=== PATIENT | female | born 1995 | race Caucasian/White ===

== ENCOUNTER 2018-11-22 00:42 | Observation (INO) ==
--- NOTE | 2018-11-22 01:48 | HP ---
Chief Complaint - Chief Complaint Date of Service: 11/22/18 Time of Service: 01:37 Chief Complaint: fell on buttocks History of Present Illness: 23 yo at 33 1/7 wks presents to L&D s/p fall on ice at around 2245, landing on buttocks. She admits to mild low back pain. She denies hitting head or abdomen, LOF, vaginal bleeding, contractions, abdominal pain, N/V, lightheadedness, or decreased movement. This complicated by bipolar d/o. Rh positive Rubella immune GBS not done Medical History (Last Reviewed 11/22/18 @ 01:41 by Mark Ramos DO) Bipolar affect, depressed Fatty liver calcium deposit removal Onset Date: 2002 right thigh Surgical History: Surgical History (Last Reviewed 11/22/18 @ 01:41 by Mark Ramos DO) H/O adenoidectomy History of appendectomy Onset Date: 2006 History of myringotomy History of tonsillectomy Hx laparoscopic cholecystectomy Onset Date: 2014 Family History: Family History (Last Reviewed 11/22/18 @ 01:41 by Mark Ramos DO) Mother Personality disorder Father Schizophrenia Hypertension Family/Other Cancer breast cancer Social History: Preferred Language Vincentian Smoking Status Former smoker (Last Updated 11/17/18 @ 13:59 by Magy Garcia [facility]) No Social History Section defined Review Of Systems (GEN) - Review of Systems Generalized/Overall Review: Present: No Symptoms Reported EENTM: Present: No Symptoms Reported Respiratory: Present: No Symptoms Reported Cardiac: Present: No Symptoms Reported Abdominal: Present: No Symptoms Reported Genitourinary: Present: No Symptoms Reported Musculoskeletal: Present: Back Pain Neurological: Present: No Symptoms Reported Skin: Present: No Symptoms Reported Endocrine: Present: No Symptoms Reported Allergies/Adverse Reactions: Allergies Allergy/AdvReac Type Severity Reaction Status Date / Time No Known Allergies Allergy Verified 11/17/18 13:41 Home Medications: HOME MEDICATIONS Acetaminophen [Tylenol] 500 mg PO Q6H PRN 10/15/18 [Last Taken Unknown] Pediatric Multivitamin No.101 [Gummy] 2 ea PO 10/15/18 [Last Taken 10/15/18 08:00] Exam - Exam Vital Signs: Vital Signs - Last Taken Temp 36.4 C 11/22/18 01:32 Pulse 88 11/22/18 01:32 Resp 16 11/22/18 01:32 BP 95/57 11/22/18 01:32 Constitutional: Present: Alert, Oriented x3, Cooperative, No distress ENT Exam: Present: hearing grossly normal Breasts: Present: Exam deferred Respiratory: Present: lungs clear, no respiratory distress Cardiovascular/Chest: Present: regular rate, rhythm, no edema Abdomen: Present: soft, nontender, no rebound tenderness, other - gravid /Rectal: Present: Exam deferred Extremity: Present: no pedal edema, no calf tenderness Skin Exam: Present: normal color, warm/dry, no cyanosis Neurologic: Present: alert, normal mood/affect, oriented x 3 Appearance: Present: appropriate appearance, appropriate insight Eye contact: Present: cooperative, good eye contact, normal speech Thoughts: Present: normal thought pattern Diagnostic Studies: FHT 120 bpm, no contractions NST reactive. Assessment/Plan - Assessment/Plan (1) Fall from slipping on ice Assessment: Admit to OB clinic status, continuous monitoring and observation till 4 hours after fall, longer if any concerning s/s. D/c home with abruption preca utions - no heavy lifting/strenous activity for 24 hours. F/u in office with OB as scheduled. Problem: Acute (2) At high risk for maternal or injury Problem: Acute
[2018-11-22] MEDS ORDERED: DEXTROSE 5%-LACTATED RINGERS 1,000 ML IV PRN ×2 (05:31→07:06)
--- NOTE | 2018-11-22 05:42 | PN ---
Subjective - Date and Time Seen Date: 11/22/18 Time: 05:32 Subjective Narrative: Patient began complaining of lower uterine cramping around 0330 this am which hsa become more intense but less frequent over the past 2 hours. She denies lightheadedness, vaginal bleeding, decreased movement, or low back pain. Objective - Review of Systems Generalized/Overall Review: Reports: No Symptoms Reported EENTM: Reports: No Symptoms Reported Respiratory: Reports: No Symptoms Reported Cardiac: Reports: No Symptoms Reported Abdominal: Reports: Other - lower abdominal cramping Genitourinary Symptoms: Reports: No Symptoms Reported Musculoskeletal Complaints: Reports: No Symptoms Reported Neurological: Reports: No Symptoms Reported Skin: Reports: No Symptoms Reported Endocrine: Reports: No Symptoms Reported - Vitals Vitals: Last Vital Signs Temp 36.4 C 11/22/18 01:32 Pulse 88 11/22/18 01:32 Resp 16 11/22/18 01:32 BP 95/57 11/22/18 01:32 - EKG/Xray Findings EKG: other - NST reactive, no decelerations, contractions q2-4 min (lasting approx 30-45sec) - Exam Constitutional: Present: Alert, Oriented x3, Cooperative Respiratory: Present: no respiratory distress Cardiovascular/Chest: Present: regular rate, rhythm Abdomen: Present: soft, no rebound tenderness, tender - right side of uterus where baby is laying. Absent: guarding /Rectal: Present: Exam deferred Extremity: Present: no pedal edema, no calf tenderness Skin Exam: Present: normal color, warm/dry, no cyanosis Neurologic: Present: alert, normal mood/affect, oriented x 3 Assessment/Plan - Problems/Diagnosis (1) Fall from slipping on ice Problem: Acute (2) At high risk for maternal or injury Problem: Acute (3) Threatened labor Problem: Acute Qualifiers: Trimester: third trimester Qualified Code(s): O47.03 - False labor before 37 completed weeks of gestation, third trimester Narrative: Will give IV fluid bolus. If contractions persist and increase intensity will get GBS culture and check cervix. Monitor closely for s/s of abruption.
[2018-11-22] MEDS ORDERED: BETAMETHASONE ACETATE,SOD PHOS 6 MG/ML VIAL IM ONE (10:26)
[2018-11-23] MEDS ORDERED: ACETAMINOPHEN 500 MG TABLET PO PRN (09:38)
[2018-11-23 09:52] VITALS: BP 112/56
--- NOTE | 2018-11-23 09:57 | PN ---
Subjective - Date and Time Seen Date: 11/23/18 Time: 09:39 Subjective Narrative: Patient denies painful contractions, vaginal bleeding, decreased movement, nausea or vomiting, or lightheaded/dizziness. Complains of mild left hip pain from sleeping on bed-right hip that she fell on is not painful. Objective - Review of Systems Generalized/Overall Review: Reports: No Symptoms Reported EENTM: Reports: No Symptoms Reported Respiratory: Reports: No Symptoms Reported Cardiac: Reports: No Symptoms Reported Abdominal: Reports: No Symptoms Reported, Other - painful contractions resolved yesterday. Genitourinary Symptoms: Reports: No Symptoms Reported Musculoskeletal Complaints: Reports: Other - left hip pain 2-12/28 Neurological: Reports: No Symptoms Reported Skin: Reports: No Symptoms Reported Endocrine: Reports: No Symptoms Reported - Vitals Vitals: Last Vital Signs Temp 36.4 C 11/22/18 01:32 Pulse 88 11/22/18 01:32 Resp 16 11/22/18 01:32 BP 95/57 11/22/18 01:32 - EKG/Xray Findings EKG: other - NST reactive. Only one mild variable deceleration throughout ent nicki period of observation. Good accelerations. Contractions resolved yesterday on toco. - Exam Constitutional: Present: Alert, Oriented x3, Cooperative, No distress ENT Exam: Present: hearing grossly normal Breasts: Present: Exam deferred Respiratory: Present: lungs clear, no respiratory distress Cardiovascular/Chest: Present: regular rate, rhythm Abdomen: Present: soft, nontender, no rebound tenderness, other - gravid. Absent: tender /Rectal: Present: Other - cervix - cl/th/-2 yesterday after contractions stopped. Extremity: Present: non-tender, no pedal edema, no calf tenderness Skin Exam: Present: normal color, warm/dry, no cyanosis Neurologic: Present: alert, normal mood/affect, oriented x 3. Absent: dizzy/light-headedness Appearance: Present: appropriate appearance, appropriate insight Eye contact: Present: cooperative, good eye contact, normal speech Thoughts: Present: normal thought pattern Assessment/Plan Plan Narrative: Discharge home today with abruption/PTL precautions. Avoid heavy lift ing/strenuous activity, sexual activity/nipple stimulation for 1 wk. Low back/pelvic floor stretching/exercises given. - Problems/Diagnosis (1) Fall from slipping on ice Problem: Acute Qualifiers: Encounter type: initial encounter Qualified Code(s): W00.9XXA - Unspecified fall due to ice and snow, initial encounter (2) At high risk for maternal or injury Problem: Acute (3) Threatened labor Problem: Acute Qualifiers: Trimester: third trimester Qualified Code(s): O47.03 - False labor before 37 completed weeks of gestation, third trimester
--- NOTE | 2018-11-23 09:58 | PN ---
Subjective - Date and Time Seen Date: 11/23/18 Time: 09:57 Subjective Narrative: This note started to import latest vitals since computer was not importing correct vitals. Objective - Vitals Vitals: Last Vital Signs Temp 36.6 C 11/23/18 07:00 Pulse 68 11/23/18 07:00 Resp 20 11/23/18 07:00 BP 112/56 11/23/18 07:00 Pulse Ox 97 11/23/18 07:00 Assessment/Plan - Problems/Diagnosis (1) Fall from slipping on ice Problem: Acute Qualifiers: Encounter type: initial encounter Qualified Code(s): W00.9XXA - Unspecified fall due to ice and snow, initial encounter (2) At high risk for maternal or injury Problem: Acute (3) Threatened labor Problem: Acute Qualifiers: Trimester: third trimester Qualified Code(s): O47.03 - False labor before 37 completed weeks of gestation, third trimester
--- NOTE | 2018-11-23 10:10 | DS ---
(1) Fall from slipping on ice Problem: Acute Qualifiers: Encounter type: initial encounter Qualified Code(s): W00.9XXA - Unspecified fall due to ice and snow, initial encounter (2) At high risk for maternal or injury Problem: Acute (3) Threatened labor Problem: Acute Qualifiers: Trimester: third trimester Qualified Code(s): O47.03 - False labor before 37 completed weeks of gestation, third trimester Description of Stay: 23 yo at 33 2/7 wks admitted for 23 observation due to increased risk for maternal/ injury and threatened labor after fall on ice 11/22/18. During patient's first 3 hours of observation she had no contractions or significant pain. Shortly thereafter, however, she began having frequent contractions with increasing intensity. Because of this she was kept for longer observation to assure no further signs of abruption or labor. Tocolytics were not given due to possible abruption. She was given a course of betamethasone in case delivery became necessary. Contractions subsided 24-28 hours after fall and cervical exam remained unchanged with reassuring tracing through period of observation. She was discharged to home in good condition with PTL/abruption precautions. Procedures Performed: see notes below - NST, continuous /toco monitoring, IV fluids, steroids Discharge Location: Home Disposition: Home self-care Condition: Good Discharge Activity: Other - No heavy lifting/strenuous activity, sexual activity/nippe stimulation for one week. Complete Home Medications List: Complete Home Medication List: Acetaminophen [Tylenol] 500 mg PO Q6H PRN 10/15/18 Pediatric Multivitamin No.101 [Gummy] 2 ea PO 10/15/18
[2018-11-23] MEDS ORDERED: BETAMETHASONE ACETATE,SOD PHOS 6 MG/ML VIAL IM ONE (10:15)
== END 2018-11-23 10:47 | disposition home or self-care (01) ==
LOC: OB 00:42 → OBCLINIC 00:42
PROVIDERS: ADMIT Obstetrics & Gynecology; ATTEND Obstetrics & Gynecology
CPT/HCPCS: 59025; 87081; 96360; 96361; 96372; G0378

== ENCOUNTER 2019-01-13 06:08 | Inpatient (IN) ==
[2019-01-13] MEDS ORDERED: RINGER'S SOLUTION,LACTATED 1,000 ML IV PRN (06:16)
[2019-01-13] MEDS ORDERED: PENICILLIN G POTASSIUM 5 MILLIONUNT in DEXTROSE 5 % IN WATER 100 ML IV ONE ×2 (06:16)
[2019-01-13] MEDS ORDERED: RINGER'S SOLUTION,LACTATED 1,000 ML IV ONE (06:16)
[2019-01-13] MEDS ORDERED: ONDANSETRON HCL/PF 2 MG/ML VIAL IV PRN (06:16)
[2019-01-13] MEDS ORDERED: NALBUPHINE HCL 10 MG/ML AMPUL IV PRN (06:16)
[2019-01-13] MEDS ORDERED: OXYTOCIN/DEXTROSE 5%-WATER 30 UNITS/500 ML BAG IV ONE ×2 (06:16→19:53)
[2019-01-13] MEDS ORDERED: LIDOCAINE HCL 50 ML VIAL PERI PRN (06:16)
[2019-01-13 08:45] LABS: Cocaine Ur Negative (NEGATIVE); Urine Barbiturate Negative (NEGATIVE); Urine Benzodiazepines Negative (NEGATIVE); Urine Opiates Negative (NEGATIVE); Urine PCP Negative (NEGATIVE); Urine THC Negative (NEGATIVE)
--- NOTE | 2019-01-13 10:03 | HP ---
Chief Complaint - Chief Complaint Date of Service: 01/13/19 Time of Service: 10:00 Chief Complaint: Induction of labor History of Present Illness: The patient presents to labor and delivery for an elective induction of labor. She reports regular contractions on pitocin. She denies loss of fluid or vaginal bleeding. Fetus is active. Medical History (Last Reviewed 01/08/19 @ 16:09 by Ravi Watson RN) Bipolar affect, depressed Fatty liver calcium deposit removal Onset Date: 2002 right thigh Surgical History: Surgical History (Last Reviewed 01/08/19 @ 16:09 by Ravi Watson RN) H/O adenoidectomy History of appendectomy Onset Date: 2006 History of myringotomy History of tonsillectomy Hx laparoscopic cholecystectomy Onset Date: 2014 Family History: Family History (Last Reviewed 01/08/19 @ 16:09 by Ravi Watson RN) Mother Personality disorder Father Schizophrenia Hypertension Family/Other Cancer breast cancer Social History: Preferred Language Maori Smoking Status Former smoker (Last Updated 01/12/19 @ 13:42 by Gisela Fontana MD) No Social History Section defined Review Of Systems (GEN) - Review of Systems Generalized/Overall Review: Present: No Symptoms Reported Misc: All systems neg except as marked Allergies/Adverse Reactions: Allergies Allergy/AdvReac Type Severity Reaction Status Date / Time No Known Allergies Allergy Verified 01/12/19 13:19 Home Medications: HOME MEDICATIONS Acetaminophen [Tylenol] 500 mg PO Q6H PRN 10/15/18 [Last Taken 01/12/19] Pediatric Multivitamin No.101 [Gummy] 2 ea PO DAILY 10/15/18 [Last Taken 01/12/19] famotidine 20 mg tablet 20 mg PO BID 30 Days #30 tab 12/24/18 [Last Taken 01/12/19] Docusate Sodium [Colace] 100 mg PO BID 01/13/19 [Last Taken 01/13/19] Exam - Exam Vital Signs: Vital Signs - Last Taken Temp 37.0 C 01/13/19 07:56 Pulse 95 01/13/19 07:56 Resp 16 01/13/19 07:56 BP 120/68 01/13/19 07:56 Pulse Ox 97 01/13/19 07:56 Constitutional: Present: Alert, Oriented x3, Cooperative, No distress Respiratory: Present: lungs clear, normal breath sounds Cardiovascular/Chest: Present: regular rate, rhythm, no murmur Abdomen: Present: soft, nontender, nondistended /Rectal: Present: Other - cvx 3/50/-2 AROM for a large amount of clear fluid Extremity: Present: non-tender, no calf tenderness Skin Exam: Present: normal color, warm/dry, no cyanosis Appearance: Present: appropriate appearance Eye contact: Present: cooperative Thoughts: Present: normal thought pattern Diagnostic Studies: Laboratory Results Urine Opiates Screen Negative (NEGATIVE) 01/13/19 Unknown Barbiturate Screen Negative (NEGATIVE) 01/13/19 Unknown Ur Phencyclidine Scrn Negative (NEGATIVE) 01/13/19 Unknown Urine Amphetamine Negative (NEGATIVE) 01/13/19 Unknown U Benzodiazepines Scrn Negative (NEGATIVE) 01/13/19 Unknown Urine Cocaine Screen Negative (NEGATIVE) 01/13/19 Unknown Urine Marijuana (THC) Negative (NEGATIVE) 01/13/19 Unknown Blood Type A Positive 01/13/19 06:26 Antibody Screen Negative 01/13/19 06:26 Assessment/Plan - Narrative Narrative: 23 yo @ 39w 2d who presents to L&D for an elective IOL. The patient is currently on pitocin at 4 milliunits/minute. AROM was accomplished with a large amount of clear fluid. The patient is on PCN for GBS prophylaxis. FHT is cat 1
[2019-01-13] MEDS: PENICILLIN G POTASSIUM 2.5 MILLIONUNT in DEXTROSE 5 % IN WATER 100 ML IV SCH ×6 (12:03→22:00)
[2019-01-13] MEDS: NALBUPHINE HCL 10 MG/ML AMPUL IV PRN ×2 (14:10→16:08)
[2019-01-13] MEDS ORDERED: MISOPROSTOL 200 MCG TABLET RC ONE (19:42)
[2019-01-13] MEDS ORDERED: HYDROCORTISONE 30 APPL TUBE TP PRN (19:53)
[2019-01-13] MEDS ORDERED: SENNOSIDES 8.6 MG TABLET PO PRN (19:53)
[2019-01-13] MEDS ORDERED: oxyCODONE HCL/ACETAMINOPHEN 1 TAB TABLET PO PRN ×2 (19:53)
[2019-01-13] MEDS ORDERED: GLYCERIN/WITCH HAZEL LEAF 40 APPL BOX TP PRN (19:53)
[2019-01-13] MEDS ORDERED: BENZOCAINE/MENTHOL 81 SPRAY CAN TP PRN (19:53)
[2019-01-13] MEDS ORDERED: diphenhydrAMINE HCL 25 MG CAPSULE PO PRN (19:53)
[2019-01-13] MEDS ORDERED: BISACODYL 10 MG SUPP.RECT RC PRN (19:53)
--- NOTE | 2019-01-13 19:53 | OR ---
Operative Report - Dictated Report Narrative: Date of delivery: 01/13/2019 Time of delivery: 1935 Gender: male weight: 3941 grams APGARS: 9/9 The patient is a 23 yo @ 39w 2d who presented to labor and delivery for an elective induction of labor. She was induced with pitocin and augmented with AROM. She progressed to complete dilation. She delivered a viable male in OA presentation. The shoulders delivered without any difficulty as did the rest of the infant. Cord clamping was delayed for 60 seconds. The cord was clamped and cut and the infant was dried and stimulated on the maternal abdomen soon after delivery and prior to cord clamping. The placenta was delivered by expression. There were no lacerations. Cytotec 800 mcg was placed rectally due to an initial gush of bleeding which then slowed down. Pitocin was running at 30. EBL: 300 mL Complications: none Specimens: none Definition: * The number of deliveries resulting in a live the patient experienced prior to current hospitalization * The previous delivery of live twins or any live multiple gestation is considered one live event. *If primagravida or nulliparous is documented select zero for the number of previous live births. Live Births: 1
[2019-01-13] MEDS ORDERED: IBUPROFEN 800 MG TABLET ONE (20:09)
[2019-01-13] MEDS: IBUPROFEN 800 MG TABLET PO PRN (20:10)
[2019-01-13] MEDS: DOCUSATE SODIUM 100 MG CAPSULE PO SCH (22:13)
[2019-01-14] MEDS: IBUPROFEN 800 MG TABLET PO PRN ×3 (04:12→16:56)
[2019-01-14] MEDS: DOCUSATE SODIUM 100 MG CAPSULE PO SCH ×2 (10:16→21:41)
--- NOTE | 2019-01-14 14:01 | PN ---
Subjective - Date and Time Seen Date: 01/14/19 Time: 09:00 Subjective Narrative: Pt without complaints Objective Objective Narrative: See vital signs - Review of Systems Generalized/Overall Review: Reports: No Symptoms Reported Misc: All systems neg except as marked - Vitals Vitals: Last Vital Signs Temp 37.4 C 01/14/19 12:30 Pulse 92 01/14/19 12:30 Resp 16 01/14/19 12:30 BP 117/58 01/14/19 08:04 Pulse Ox 96 01/14/19 12:30 - Exam Constitutional: Present: Alert, Oriented x3, Cooperative, No distress Abdomen: Present: soft, nontender, nondistended Extremity: Present: non-tender, no calf tenderness Skin Exam: Present: normal color, warm/dry, no cyanosis Appearance: Present: appropriate appearance Eye contact: Present: cooperative Thoughts: Present: normal thought pattern Assessment/Plan Plan Narrative: PPD 1 s/p Doing well Discharge tomorrow
[2019-01-15] MEDS: IBUPROFEN 800 MG TABLET PO PRN (03:44)
--- NOTE | 2019-01-15 08:31 | PN ---
Subjective - Date and Time Seen Date: 01/15/19 Time: 08:29 Subjective Narrative: Pt without complaints Objective Objective Narrative: See vital signs - Review of Systems Generalized/Overall Review: Reports: No Symptoms Reported Misc: All systems neg except as marked - Vitals Vitals: Last Vital Signs Temp 37.1 C 01/15/19 00:44 Pulse 89 01/15/19 00:44 Resp 18 01/15/19 00:44 BP 108/64 01/15/19 00:44 Pulse Ox 97 01/14/19 19:45 - Exam Constitutional: Present: Alert, Oriented x3, Cooperative, No distress Abdomen: Present: soft, nontender, nondistended Extremity: Present: non-tender, no calf tenderness Skin Exam: Present: normal color, warm/dry, no cyanosis Appearance: Present: appropriate appearance Eye contact: Present: cooperative Thoughts: Present: normal thought pattern Assessment/Plan Plan Narrative: PPD 2 s/p Doing well Discharge today The patient desires a Mirena IUD for PP contraception She reports she has a hemorrhoid that is bothering her. She is counseled that typically hemorrhoids will resolve by 6 weeks after delivery but that some will persist.
[2019-01-15 08:54] VITALS: BP 108/61
== END 2019-01-15 11:55 | disposition home or self-care (01) | DRG 807 ==
LOC: OB 06:08
PROVIDERS: ADMIT Obstetrics & Gynecology; ATTEND Obstetrics & Gynecology
CPT/HCPCS: 59025; 80307; 86850; 86900